=== PATIENT | female | born 1940 | race Caucasian/White ===

== ENCOUNTER 2016-09-26 15:56 | Emergency (ER) | payer MEDICARE, BC ==
--- NOTE | 2016-09-26 17:37 | CT ---
HEAD CT WITHOUT CONTRAST: Date: 09-26-16 Comparison: 12-09-15 History: Fall, head pain. Technique: Serial axial CT imaging at 5 mm intervals from vertex through the skull base without con trast. FINDINGS: Right frontal ventriculoperitoneal shunt tubing present, stable. Imaged paranasal sinuses/mastoid air cells are well aerated. There is subcutaneous gas adjacent to the mastoid air cells on the left, posterior to the left pinna, suggesting a laceration in this abi on. There is moderate diffuse cerebral volume loss with associated prominence of the CSF containing spac es. There is stable dilation of the third ventricle and the lateral ventricles. No intracranial he morrhage, midline shift, or mass effect. IMPRESSION: 1. Evidence of soft tissue laceration on the left. 2. Stable ventriculoperitoneal shunt with stable prominence of the lateral ventricles. 3. No displaced calvarial fracture or intracranial hemorrhage. POS: [facility]
--- NOTE | 2016-09-26 17:42 | CT ---
CERVICAL SPINE CT WITHOUT CONTRAST: Date: 09-26-16 Comparison: None. History: Fall, trauma, pain. Technique: Serial axial CT imaging at 2.5 mm intervals from lung apices through skull base without contrast. Coronal and sagittal reformatted imaging obtained. FINDINGS: Imaged lung apices are unremarkable. Right sided [employer] shunt tubing noted, incompletely imaged. The C1 ring is intact. There is moderate degenerative change of the atlantoaxial interspace. Crani ocervical junction appears within normal limits. The dens, occipital condyles, C1-2 articulation, a nd cervicothoracic junction appear grossly unremarkable. There is mild anterolisthesis of C3 on C4 measuring 2 mm and of C4 on C5 measuring 3 mm. There is d egenerative endplate change with posterior osteophyte formation as C5-6 and C6-7. No prevertebral s oft tissue swelling. No acute fracture. IMPRESSION: 1. Multilevel cervical spine degenerative change. No acute fracture or dislocation seen. POS: [facility]
--- NOTE | 2016-09-26 18:45 | RAD ---
THREE VIEWS RIGHT WRIST: Date: 09-26-16 Comparison: None. History: Fall, pain. FINDINGS: There is no widening of the scapholunate interval. No displaced fracture or evidence of dislocation seen. If symptoms persist, follow up in 7-10 days with dedicated scaphoid views advised. IMPRESSION: No acute osseous abnormality. POS: [facility]
== END 2016-09-26 19:35 ==
LOC: MADERS 15:56
DX: S01.01XA Laceration without foreign body of scalp, initial encounter (principal); S63.501A Unspecified sprain of right wrist, initial encounter; K21.9 Gastro-esophageal reflux disease without esophagitis; I10 Essential (primary) hypertension; W19.XXXA Unspecified fall, initial encounter
CPT/HCPCS: 70450; 72125

== ENCOUNTER 2016-10-20 08:06 | Outpatient (CLI) | payer MEDICARE, BC ==
[2016-10-20] MEDS ORDERED: Iopamidol 370 76% 100 ML VIAL ONE (09:02)
--- NOTE | 2016-10-20 12:05 | CT ---
CT ABDOMEN AND PELVIS WITH IV CONTRAST 10/20/2016 PROVIDED CLINICAL HISTORY: Abdominal mass. FINDINGS: The visualized lung bases are free of significant opacity. There is a moderate hiatal hernia. The liver, spleen, pancreas, and adrenal glands demonstrate an unremarkable CT appearance. The metallic density in the region of the descending duodenum/pancreatic head is presumably postoperative in audrey ure. There is a subcentimeter fat density lesion within the left kidney, superiorly, compatible wit h an angiomyolipoma. There is an exophytic simple cyst involving the lateral aspect of the right ki dney. There is a 10.7 x 9.1 cm mixed soft tissue and fat density mass within the anterior aspects of the p steve, emanating from the region of the left adnexa, compatible with a dermoid. This demonstrates a ssociated calcification at its periphery anteriorly. There is no bowel dilatation, inflammatory fat stranding, free fluid, or lymph node enlargement appa rent. Atherosclerotic vascular calcifications are seen. Presumed ventriculoperitoneal shunt tubing noted. Small fat-containing umbilical hernia. The osseous structures demonstrate no concerning osteoblastic or osteolytic lesions. IMPRESSION: 1. Mixed density pelvic mass, compatible with an ovarian dermoid, as described above. 2. Subcentimeter left renal angiomyolipoma. 3. Moderate hiatal hernia. 4. Other findings as described above. POS: [facility]
== END 2016-10-20 08:07 | disposition home or self-care (01) ==
LOC: MADCT 08:06
PROVIDERS: ATTEND Family Medicine
DX: R19.00 Intra-abdominal and pelvic swelling, mass and lump, unspecified site (principal); R94.4 Abnormal results of kidney function studies; D17.71 Benign lipomatous neoplasm of kidney; K44.9 Diaphragmatic hernia without obstruction or gangrene
CPT/HCPCS: 36415; 74177; 82565